=== PATIENT | female | born 1990 | race Caucasian/White ===

== ENCOUNTER 2021-01-27 18:11 | Inpatient (IN) | payer OTHER ==
[2021-01-27] MEDS ORDERED: Nalbuphine 10 MG/1 ML Vial IVPUSH PRN (18:41)
[2021-01-27] MEDS ORDERED: Sodium Chloride 0.9% 10 ML Syringe FLUSH PRN (18:41)
--- NOTE | 2021-01-27 18:44 | PCM.LDHP ---
L&D History of Present Illness - General Date of Service: 01/27/21 Admit Problem/Dx: Patient Status Order with Admit Dx/Problem 01/27/21 18:41 Patient Status [ADT] Routine Admission Diagnosis/Problem Admission Diagnosis/Problem Premature rupture of membranes Source of Information: Patient History Limitations: Reports: No Limitations - History of Present Illness Introduction:: Patient is a 30 y/o at 38 1/7 wks who presents for admission for SROM/PROM. Thinks for most of this week has had some intermittent dampness/leaking. Today in shower around 1130 this increased. Was seen in clinic earlier today and had an amnisure which was positive. 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: Reports: Endometriosis, : 1 Para: 0 LMP (Approximate): - Past Surgical History HEENT Surgical History: Reports: Eye Surgery GI Surgical History: Reports: Appendectomy Female Surgical History: Reports: Other (See Below) (diagnostic laparoscopy) Musculoskeletal Surgical History: Reports: Other (See Below) (ACL repair) Social & Family History - Tobacco Use Tobacco Use Status *Q: Never Tobacco User - Alcohol Use Alcohol Use History: No - Recreational Drug Use Recreational Drug Use: No H&P Review of Systems - Review of Systems: Review Of Systems: See Below General: Reports: No Symptoms Pulmonary: Reports: No Symptoms Cardiovascular: Reports: No Symptoms Gastrointestinal: Reports: No Symptoms Genitourinary: Reports: No Symptoms Musculoskeletal: Reports: Back Pain Psychiatric: Reports: No Symptoms Neurological: Reports: No Symptoms L&D Exam - Exam Exam: See Below - OB Specific Contraction Intensity: Irritability Movement: Active Heart Tones: Present Heart Tones per Min: 125 Heart Rate (FHR) Variability: Moderate (6-25 bmp) Presentation: Vertex - Plascencia Score Plascencia Score Effacement: >80% Plascencia Score Dilation: 3-4 cm - Exam General: Alert, Oriented, Cooperative Lungs: Clear to Auscultation, Normal Respiratory Effort Cardiovascular: Regular Rate, Regular Rhythm GI/Abdominal Exam: Soft, Non-Tender Genitourinary: Normal external exam - Patient Data Result Diagrams: 01/27/21 18:53 - Problem List (1) 38 weeks gestation of SNOMED Code(s): 47487400 ICD Code: Z3A.38 - 38 WEEKS GESTATION OF Status: Acute Current Visit: Yes (2) Prolonged rupture of membranes SNOMED Code(s): 61507693 ICD Code: O42.90 - CASTILLO ROM, 7TH0 BETW RUPT & ONST LABR, UNSP WEEKS OF GEST Status: Acute Current Visit: Yes Problem List Initiated/Reviewed/Updated: Yes Orders Last 24hrs: Active Orders 24 hr Category Date Time Status Patient Status [ADT] Routine ADT 01/27/21 18:41 Ordered Activity as Tolerated [RC] PFP Care 01/27/21 18:41 Ordered Communication Order [RC] ASDIRECTED Care 01/27/21 18:41 Ordered Heart Tones [RC] ASDIRECTED Care 01/27/21 18:42 Ordered Non Stress Test [RC] PER UNIT ROUTINE Care 01/27/21 18:41 Ordered Notify Provider [RC] PFP Care 01/27/21 18:41 Ordered Notify Provider [RC] PRN Care 01/27/21 18:41 Ordered Peripheral IV Care [RC] . DIRECTED Care 01/27/21 18:42 Ordered Vital Signs [RC] PER UNIT ROUTINE Care 01/27/21 18:41 Ordered Regular Diet [DIET] Diet 01/27/21 Dinner Ordered CBC W/O DIFF,HEMOGRAM [HEME] Stat Lab 01/27/21 18:41 Ordered CORONAVIRUS COVID-19 KATHERYN [MOLEC] Stat Lab 01/27/21 18:43 Ordered HEP C VIRUS AB [REF] Stat Lab 01/27/21 18:41 Ordered RAPID PLASMA REAGIN,RPR [CHEM] Routine Lab 01/27/21 18:41 Ordered TYPE AND SCREEN [BBK] Stat Lab 01/27/21 18:41 Ordered Lactated Ringers [Ringers, Lactated] 1,000 ml Med 01/27/21 18:45 Ordered IV ASDIRECTED Nalbuphine [Nubain] Med 01/27/21 18:41 Ordered 10 mg IVPUSH Q2H PRN Ondansetron [Zofran] Med 01/27/21 18:41 Ordered 4 mg IVPUSH Q4H PRN Oxytocin/Lactated Ringers [Pitocin in LR 10 Units/1,000 Med 01/27/21 18:45 Ordered ML] 10 unit in 1,000 ml IV .CONTINUOUS Sodium Chloride 0.9% [Saline Flush] Med 01/27/21 18:41 Ordered 10 ml FLUSH ASDIRECTED PRN Electronic Heart Tones Ext w TOCO [WOMSER] Oth 01/27/21 18:41 Ordered Routine Electronic Heart Tones Internal [WOMSER] Per Unit Ot 01/27/21 18:41 Ordered Routine Peripheral IV Insertion Adult [OM.PC] Routine Ot 01/27/21 18:41 Ordered Resuscitation Status Routine Resus Stat 01/27/21 18:41 Ordered Assessment/Plan Comment:: * Unknown duration of ROM. Will start pitocin for augmentation * GBS negative * Lab work done * Pain management per patient preference * Anticipate
[2021-01-27] MEDS ORDERED: Oxytocin/Lactated Ringers 10 UNIT/1,000 ML BAG IV SCH ×2 (18:45→20:15)
--- NOTE | 2021-01-27 18:48 | PCM.PREANE ---
Preanesthetic Assessment - Procedure Proposed Procedure: BASHIR - Anesthesia/Transfusion/Family Hx Anesthesia History: Prior Anesthesia Without Reaction Family History of Anesthesia Reaction: No Transfusion History: No Prior Transfusion(s) Intubation History: Unknown - Review of Systems General: No Symptoms Pulmonary: No Symptoms Cardiovascular: No Symptoms, Edema (last 3 weeks) Gastrointestinal: No Symptoms (GERD), Nausea Other: Reports: None - Physical Assessment NPO Status Date: 01/27/21 NPO Status Time: 18:45 Vital Signs: HR:107 Sat: 99% Temp: 97.9 B/P: 137/82 Resp: 20 Height: 1.63 m Weight: 103.419 kg ASA Class: 3 Mental Status: Alert & Oriented x3 Airway Class: Mallampati = 2 Dentition: Reports: Normal Dentition, Caries Thyro-Mental Finger Breadths: 3 Mouth Opening Finger Breadths: 3 ROM/Head Extension: Full Lungs: Clear to Auscultation, Normal Respiratory Effort Cardiovascular: Regular Rate, Regular Rhythm, No Murmurs - Lab Values: All labs reviewed and noted and within acceptable ranges to proceed with epidural. - Allergies Allergies/Adverse Reactions: Allergies Allergy/AdvReac Type Severity Reaction Status Date / Time No Known Allergies Allergy Verified 01/27/14 08:59 - Anesthesia Plan Pre-Op Medication Ordered: None - Acknowledgements Anesthesia Type Planned: Epidural Pt an Appropriate Candidate for the Planned Anesthesia: Yes Alternatives and Risks of Anesthesia Discussed w Pt/Guardian: Yes Pt/Guardian Understands and Agrees with Anesthesia Plan: Yes PreAnesthesia Questionnaire - HOME MEDS Home Medications: Home Meds Ciprofloxacin HCl [Cipro] 500 mg PO BID #10 tablet 01/27/14 [Rx] Hydrocodone/Acetaminophen [[place] 5-325] 1 tab PO Q6HR PRN #7 tablet 01/27/14 [Rx] Ondansetron [Zofran] 4 mg PO Q8H PRN #7 bottle 01/27/14 [Rx]
[2021-01-27] MEDS ORDERED: ePHEDrine 50 MG/ML SDV IVPUSH PRN (19:05)
[2021-01-27] MEDS ORDERED: fentaNYL 100 MCG/2 ML SDV EPIDUR PRN (19:05)
[2021-01-27] MEDS ORDERED: Ondansetron 4 MG/2 ML SDV IVPUSH PRN (19:05)
[2021-01-27] MEDS ORDERED: Bupivacaine/fentaNYL/NS 100 ML Bag EPIDUR SCH (19:15)
[2021-01-27] MEDS: Lactated Ringers 1,000 ML IV SCH (20:26)
[2021-01-27] MEDS: Ondansetron 4 MG/2 ML SDV IVPUSH PRN (23:29)
[2021-01-28] MEDS: Lactated Ringers 1,000 ML IV SCH ×2 (00:14→06:36)
[2021-01-28] MEDS ORDERED: Bupivacaine 0.25% 30 ML SDV ONE (01:00)
[2021-01-28] MEDS: Ondansetron 4 MG/2 ML SDV IVPUSH PRN (03:09)
[2021-01-28] MEDS ORDERED: ceFAZolin 1 GM Vial IM ONE (05:59)
--- NOTE | 2021-01-28 06:28 | PCM.DEL ---
L & D Note - General Info Date of Service: 01/28/21 - Delivery Note Labor: Augmented by Oxytocin Delivery Outcome: Livebirth Delivery Method: Spontaneous Vaginal Delivery-Single Delivery Mode: Spontaneous Presentation: Right Occiput Anterior (MAK) Nuchal Cord: Present (tight, not reduced) Anesthesia Type: Epidural Amniotic Fluid Description: Clear Episiotomy Type: None Laceration: 2nd Degree, Sulcus Suture type: Vicryl Suture size: 2-0 Placenta: Intact, Manual Removal Cord: 3 Vessels Estimated Blood Loss: 400 Resuscitation Needed: Yes : Bulb Syringe, Stimulated, Warmed, Capron Used, Warmer Used Delivery Comments (Free Text/Narrative):: The patient was pushing in the dorsal lithotomy position. Patient pushed for about 4 hours and became tired. Sterile vaginal exam complete/complete/+4 station. head in MAK presentation. Maternal pushing effort was good and the pelvis was felt to be adequate for an instrument assisted delivery. Given maternal exhaustion the decision was made to proceed with vacuum assisted vaginal delivery. The mushroom cup was placed without difficulty with care to avoid the vaginal side alarcon at 0531. Subsequent vacuum assisted vaginal delivery with pushing over two contractions at 0533. Total pressure applied 550 mm Hg. Total pop offs 0. Suction was removed following delivery of the head. Nuchal cord present, but tight and so not reduced. The remainder of the infant delivered without difficulty. placed on maternal abdomen. Cord clamped and cut. Cord blood obtained. After 30 minutes placenta not yet delivered. Manual extraction done successfully. Given ancef for antibiotic prophylaxis. Inspection of the perineum following delivery with bilateral sulcus tear repaired with 2 separate 2-0 Vicryl sutures - General Info Date of Service: 01/28/21 - Patient Data Vitals - Most Recent: Last Vital Signs Temp 36.7 C 01/27/21 20:03 Pulse 116 H 01/27/21 20:03 Resp 16 01/27/21 20:03 BP 137/82 01/27/21 20:03 Pulse Ox Weight - Most Recent: 103.646 kg - Problem List & Annotations (1) 38 weeks gestation of SNOMED Code(s): 76080675 Code(s): Z3A.38 - 38 WEEKS GESTATION OF Status: Acute Current Visit: Yes (2) Prolonged rupture of membranes SNOMED Code(s): 91417263 Code(s): O42.90 - CASTILLO ROM, 7TH0 BETW RUPT & ONST LABR, UNSP WEEKS OF GEST Status: Acute Current Visit: Yes (3) Maternal exhaustion complicating labor and delivery SNOMED Code(s): 828965789 Code(s): O75.81 - MATERNAL EXHAUSTION COMPLICATING LABOR AND DELIVERY Status: Acute Current Visit: Yes (4) Vacuum-assisted vaginal delivery SNOMED Code(s): 89780749993307264 Code(s): Z37.9 - OUTCOME OF DELIVERY, UNSPECIFIED Status: Acute Current Visit: Yes (5) Retained placenta SNOMED Code(s): 628207916 Code(s): O73.0 - RETAINED PLACENTA WITHOUT HEMORRHAGE Status: Acute Current Visit: Yes Qualifiers: Retained placenta detail: complete placenta Qualified Code(s): O73.0 - Retained placenta without hemorrhage - Problem List Review Problem List Initiated/Reviewed/Updated: Yes - My Orders Last 24 Hours: My Active Orders 01/27/21 Dinner Regular Diet [DIET] 01/27/21 18:41 Patient Status [ADT] Routine Activity as Tolerated [RC] PFP Communication Order [RC] ASDIRECTED Notify Provider [RC] PFP Notify Provider [RC] PRN Nalbuphine [Nubain] 10 mg IVPUSH Q2H PRN Ondansetron [Zofran] 4 mg IVPUSH Q4H PRN Sodium Chloride 0.9% [Saline Flush] 10 ml FLUSH ASDIRECTED PRN Electronic Heart Tones Ext w TOCO [WOMSER] Routine Electronic Heart Tones Internal [WOMSER] Per Unit Routine Peripheral IV Insertion Adult [OM.PC] Routine Resuscitation Status Routine 01/27/21 18:42 Heart Tones [RC] ASDIRECTED Peripheral IV Care [RC] . DIRECTED 01/27/21 18:45 Lactated Ringers [Ringers, Lactated] 1,000 ml IV ASDIRECTED Oxytocin/Lactated Ringers [Pitocin in LR 10 Units/1,000 ML] 10 unit in 1,000 ml IV .CONTINUOUS 01/27/21 18:53 HEP C VIRUS AB [REF] Stat 01/27/21 20:15 Oxytocin/Lactated Ringers [Pitocin in LR 10 Units/1,000 ML] 10 unit in 1,000 ml IV TITRATE 01/28/21 06:15 ceFAZolin [Ancef 2 GM/50 ML] 50 ml IV ONETIME - Assessment Assessment:: PPD#0 - Plan Plan:: * Routine cares * Breast feeding * Discharge home in 2 days
--- NOTE | 2021-01-28 07:24 | PCM48HPAN ---
Post Anesthesia Note - EVALUATION WITHIN 48HRS OF ANESTHETIC Vital Signs in Normal Range: Yes Patient Participated in Evaluation: Yes Respiratory Function Stable: Yes Airway Patent: Yes Cardiovascular Function Stable: Yes Hydration Status Stable: Yes Pain Control Satisfactory: Yes Nausea and Vomiting Control Satisfactory: Yes Mental Status Recovered: Yes Vital Signs: Last Vital Signs Temp 98.1 F 01/27/21 20:03 Pulse 116 H 01/27/21 20:03 Resp 16 01/27/21 20:03 BP 137/82 01/27/21 20:03 Pulse Ox
[2021-01-28] MEDS ORDERED: Benzocaine/Menthol 20%-0.5% Spray 56 GM Canister TOP PRN (07:29)
[2021-01-28] MEDS ORDERED: Witch Hazel Medicated Pads 40/Jar TOP PRN (07:29)
[2021-01-28] MEDS: Ibuprofen 600 MG Tab PO PRN ×2 (13:37→21:24)
[2021-01-28] MEDS ORDERED: Famotidine 20 MG Tab PO ONE (15:29)
[2021-01-29] MEDS: Ibuprofen 600 MG Tab PO PRN ×3 (03:48→15:32)
[2021-01-29] MEDS: Docusate Sodium 100 MG Cap PO PRN ×2 (09:16→19:38)
--- NOTE | 2021-01-29 11:25 | PCM.SN.2 ---
- Free Text/Narrative Note: Post Progress Note PPD #1 Subjective: Doing well overall. Ambulating without difficulty. Lochia minimal. Patient with urinary retention in the evening of PPD #0. She had straight cath x1 with 1000 mL of urine drained. She then had overflow urinary incontinence and was unable to urinate and had 700 mL of urine drained later in the evening and Wang catheter was placed at that time. She has had good urine output since then. Tolerating regular diet without nausea or vomiting. Pain controlled with oral medications. Breast-feeding with minimal difficulty. Objective: Vitals: Vital Signs - 24 hr 01/28/21 01/28/21 01/29/21 14:35 21:25 03:36 Temperature 36.8 C 36.8 C 36.8 C Pulse, 112 H 101 H 81 Peripheral Respiratory 16 14 14 Rate Blood Pressure 121/71 125/76 124/65 O2 Sat by Pulse 96 97 95 Oximetry Physical Exam General: Alert and oriented, no acute distress Lungs: Clear to auscultation bilaterally Heart: Regular rate and rhythm Abdomen: Soft, minimal appropriate tenderness, non-distended, fundus midline, nontender, and at the umbilicus Pelvis: Wang catheter in place, no significant bleeding noted on peripad Extremities: Trace edema in bilateral lower extremities to mid shins, no calf tenderness bilaterally ASSESSMENT: 30-year-old female -0-0-1 s/p vacuum-assisted vaginal delivery PPD #1, complicated by urinary retention after delivery and Wang catheter placed for continuous drainage of urine, retained placenta with manual extraction and meconium stained fluid PLAN: Doing well Discontinue catheter this morning and monitor for urination. If patient is unable to urinate after approximately 4 hours after removal then we will replace the Wang catheter and leave it in place for 3 to 5 days until she is able to be seen in the clinic by her regular [employer], Dr. Helms. Breast-feeding with minimal difficulty. Assist as needed Lochia minimal. Continue to monitor for appropriate lochia. Continue routine care Anticipate discharge home tomorrow Kelvin Mccormick MD 11:25 AM 01/29/2021
[2021-01-29] MEDS: Acetaminophen 325 MG Tab PO PRN (19:38)
[2021-01-30] MEDS: Ibuprofen 600 MG Tab PO PRN ×2 (00:02→09:14)
[2021-01-30] MEDS: Docusate Sodium 100 MG Cap PO PRN ×2 (09:16→10:43)
[2021-01-30] MEDS: Acetaminophen 325 MG Tab PO PRN (10:43)
--- NOTE | 2021-01-30 10:53 | PCM.SN.2 ---
- Free Text/Narrative Note: Post Progress Note PPD #2 Subjective: Doing well overall. Ambulating without difficulty. Lochia minimal. Patient with Wang catheter that was removed in the morning of PPD #1 and has been able to urinate without difficulty since then. She reports that she did have a bowel movement this morning and noted some increased amount of vaginal bleeding after bowel movement. She denies any pain or pressure in the vagina or rectum. Tolerating regular diet without nausea or vomiting. Pain controlled with oral medications. Breast-feeding with minimal difficulty. Objective: Vitals: Vital Signs - 24 hr 01/29/21 01/29/21 15:30 20:46 Temperature 36.3 C 36.8 C Pulse, 96 109 H Peripheral Respiratory 16 16 Rate Blood Pressure 94/51 L 126/59 L O2 Sat by Pulse 97 95 Oximetry Physical Exam General: Alert and oriented, no acute distress Lungs: Clear to auscultation bilaterally Heart: Regular rate and rhythm Abdomen: Soft, minimal appropriate tenderness, non-distended, fundus midline, nontender, and 2 fingerbreadths below the umbilicus Pelvis: Wang catheter in place, no significant bleeding noted on peripad Extremities: Trace edema in bilateral lower extremities to mid shins, no calf tenderness bilaterally ASSESSMENT: 30-year-old female -0-0-1 s/p vacuum-assisted vaginal delivery PPD #2, complicated by urinary retention after delivery and Wang catheter placed for continuous drainage of urine, retained placenta with manual extraction and meconium stained fluid PLAN: Doing well Patient voiding without difficulty after removal of her Wang catheter on PPD #1 Breast-feeding with minimal difficulty. Assist as needed Lochia minimal. Continue to monitor for appropriate lochia. Continue routine care Discharge home today Kelvin Mccormick MD 10:51 AM 01/30/2021
--- NOTE | 2021-01-30 11:00 | PCM.DCSUM1 ---
Discharge Summary - Hospital Course Free Text/Narrative:: - General Info Date of Service: 01/28/21 - Delivery Note Labor: Augmented by Oxytocin Delivery Outcome: Livebirth Delivery Method: Spontaneous Vaginal Delivery-Single Delivery Mode: Spontaneous Presentation: Right Occiput Anterior (MAK) Nuchal Cord: Present (tight, not reduced) Anesthesia Type: Epidural Amniotic Fluid Description: Clear Episiotomy Type: None Laceration: 2nd Degree, Sulcus Suture type: Vicryl Suture size: 2-0 Placenta: Intact, Manual Removal Cord: 3 Vessels Estimated Blood Loss: 400 Resuscitation Needed: Yes : Bulb Syringe, Stimulated, Warmed, [place] Used, Warmer Used Delivery Comments (Free Text/Narrative):: The patient was pushing in the dorsal lithotomy position. Patient pushed for about 4 hours and became tired. Sterile vaginal exam complete/complete/+4 station. head in MAK presentation. Maternal pushing effort was good and the pelvis was felt to be adequate for an instrument assisted delivery. Given maternal exhaustion the decision was made to proceed with vacuum assisted vaginal delivery. The mushroom cup was placed without difficulty with care to avoid the vaginal side alarcon at 0531. Subsequent vacuum assisted vaginal delivery with pushing over two contractions at 0533. Total pressure applied 550 mm Hg. Total pop offs 0. Suction was removed following delivery of the head. Nuchal cord present, but tight and so not reduced. The remainder of the delivered without difficulty. Infant placed on maternal abdomen. Cord clamped and cut. Cord blood obtained. After 30 minutes placenta not yet delivered. Manual extraction done successfully. Given ancef for antibiotic prophylaxis. Inspection of the perineum following delivery with bilateral s ulcus tear repaired with 2 separate 2-0 Vicryl sutures Diagnosis: Stroke: No - Discharge Data Discharge Date: 01/30/21 Discharge Disposition: Home, Self-Care 01 Condition: Good - Referral to Home Health Primary Care Physician: Susana Helms MD - Patient Summary/Data Complications: None Consults: None Hospital Course: Michelle Flores was admitted for spontaneous rupture membranes that may have been present for several days. On admission her cervix was dilated to 3-4 cm. She was GBS negative. She was given pitocin for augmentation. She was given an epidural for anesthesia. She progressed to complete and began pushing. On 01/28/2021 she had a vacuum-assisted vaginal delivery of a live female at 05:33. Apgars of 5, 7 and 8. Weight of 2890 g (6 pounds 5.9 ounces). Her course was uneventful. Her pain was well controlled and she had minimal lochia. During PPD #0 she was not able to urinate and had straight catheterization x1 with return of 1000 mL of urine. She was then continuing to have overflow urinary and continence with inability to urinate and had an additional 700 mL of urine drained in the evening of PPD #0 a Wang catheter was placed overnight. She was ambulating, tolerating a regular diet and voiding normally. She was breast-feeding with minimal difficulty. She was afebrile and her hematocrit was 37.0 on admission.in the morning of PPD #1 her Wang catheter was removed and she was able to urinate without difficulty during that day and into PPD #2. She desired to be discharged home on the morning of PPD #2. Her blood type is O+. - Patient Instructions Diet: Regular Diet as Tolerated Activity: Apply Ice, As Tolerated Activity, Other: Nothing in the vagina for 6 weeks Driving: May Drive Today Showering/Bathing: May Shower Notify Provider of: Fever, Increased Pain, Swelling and Redness, Drainage, Nausea and/or Vomiting - Discharge Plan *PRESCRIPTION DRUG MONITORING PROGRAM REVIEWED*: Not Applicable *COPY OF PRESCRIPTION DRUG MONITORING REPORT IN PATIENT LEELEE: Not Applicable Home Medications: Home Meds Lactobacillus 3/Fos/Pantethine [Probiotic & Acidophilus] 1 cap PO DAILY 01/27/21 [History] Pnv No.95/Ferrous Fum/Folic AC [ Tablet] 1 tab PO DAILY 01/27/21 [History] diphenhydrAMINE HCL [Unisom] 50 mg PO BEDTIME 01/27/21 [History] Acetaminophen [Tylenol] 650 mg PO Q4H PRN tablet 01/30/21 [Rx] Benzocaine/Menthol [Dermoplast Pain Relief Kipling] 1 spray TOP ASDIRECTED PRN canister 01/30/21 [Rx] Docusate Sodium [Colace] 100 mg PO BID PRN cap 01/30/21 [Rx] Ibuprofen [Motrin] 600 mg PO Q6H PRN tablet 01/30/21 [Rx] witch Sue [Tucks] 1 pad TOP ASDIRECTED PRN pad 01/30/21 [Rx] Patient Handouts: Care After Vaginal Delivery, Care of a Perineal Tear, Vacuum-Assisted Vaginal Delivery Referrals: Susana Helms MD [Primary Care Provider] - (Follow-up for routine visit in 3 to 6 weeks or earlier as needed.) - Discharge Summary/Plan Comment DC Time >30 min.: No - Patient Data Vitals - Most Recent: Last Vital Signs Temp 36.8 C 01/29/21 20:46 Pulse 109 H 01/29/21 20:46 Resp 16 01/29/21 20:46 BP 126/59 L 01/29/21 20:46 Pulse Ox 95 01/29/21 20:46 Weight - Most Recent: 103.646 kg I&O - Last 24 hours: Intake & Output 01/29/21 01/30/21 01/30/21 22:59 06:59 14:59 Intake Total 110 Output Total 2100 Balance -1989 Lab Results - Last 24 hrs: Laboratory Results - last 24 hr 01/27/21 Range/Units 18:53 Hepatitis C Antibody <0.1 (0.0-0.9) s/co ratio Med Orders - Current: Current Medications Acetaminophen (Acetaminophen 325 Mg Tab) 650 mg PO Q4H PRN PRN Reason: mild pain or fever Last Admin: 01/30/21 10:43 Dose: 650 mg Documented by: Benzocaine/Menthol (Benzocaine/Menthol 20%-0.5% Kipling 56 Gm Canister) 0 gm TOP ASDIRECTED PRN PRN Reason: Perineal Comfort Measure Last Admin: 01/30/21 10:43 Dose: 1 can Documented by: Docusate Sodium (Docusate Sodium 100 Mg Cap) 100 mg PO BID PRN PRN Reason: Constipation Last Admin: 01/30/21 10:43 Dose: 100 mg Documented by: Ibuprofen (Ibuprofen 600 Mg Tab) 600 mg PO Q6H PRN PRN Reason: Mild pain or fever Last Admin: 01/30/21 09:14 Dose: 600 mg Documented by: Promise Perezel (Witch Sue Medicated Pads 40/Jar) 1 pad TOP ASDIRECTED PRN PRN Reason: Perineal Comfort Measure Last Admin: 01/30/21 10:43 Dose: 1 jar Documented by: Discontinued Medications Bupivacaine HCl (Bupivacaine 0.25% 30 Ml Sdv) 30 ml .ROUTE .STK-MED ONE Stop: 01/28/21 01:01 Ephedrine Sulfate (Ephedrine 50 Mg/Ml Sdv) 5 mg IVPUSH ASDIRECTED PRN PRN Reason: Hypotension Last Admin: 01/28/21 00:32 Dose: 5 mg Documented by: Famotidine (Famotidine 20 Mg Tab) 20 mg PO ONETIME ONE Stop: 01/28/21 15:30 Last Admin: 01/28/21 16:17 Dose: 20 mg Documented by: Fentanyl (Fentanyl 100 Mcg/2 Ml Sdv) 100 mcg EPIDUR Q3H PRN PRN Reason: Pain Last Admin: 01/27/21 23:34 Dose: 100 mcg Documented by: Fentanyl/Bupivacaine HCl (Bupivacaine/Fentanyl/Ns 100 Ml Bag) 100 ml EPIDUR ASDIRECTED NIEVES Last Admin: 01/27/21 23:35 Dose: 100 ml Documented by: Oxytocin/Lactated Ringer's (Pitocin In Lr 10 Units/1,000 Ml) 10 unit in 1,000 mls @ 500 mls/hr IV .CONTINUOUS NIEVES Last Admin: 01/28/21 06:37 Dose: 500 mls/hr Documented by: Lactated Ringer's (Ringers, Lactated) 1,000 mls @ 100 mls/hr IV ASDIRECTED NIEVES Last Admin: 01/28/21 06:36 Dose: 100 mls/hr Documented by: Oxytocin/Lactated Ringer's (Pitocin In Lr 10 Units/1,000 Ml) 10 unit in 1,000 mls @ 12 mls/hr IV TITRATE NIEVES; Protocol Last Titration: 01/28/21 05:01 Dose: 6 munits/min, 36 mls/hr Documented by: Cefazolin Sodium/Dextrose (Ancef 2 Gm/50 Ml) Confirm Administered Dose 50 mls @ as directed .ROUTE .STK-MED ONE Stop: 01/28/21 06:12 Last Admin: 01/28/21 06:18 Dose: Not Given Documented by: Cefazolin Sodium/Dextrose (Ancef 2 Gm/50 Ml) 50 mls @ 100 mls/hr IV ONETIME ONE Stop: 01/28/21 06:44 Last Admin: 01/28/21 06:18 Dose: 100 mls/hr Documented by: Miscellaneous Medication (Phenylephrine Hcl In 0.9% Nacl 1 Mg/10 Ml Syringe) 0.1 mg IVPUSH Q10M PRN PRN Reason: Hypotension Nalbuphine HCl (Nalbuphine 10 Mg/1 Ml Vial) 10 mg IVPUSH Q2H PRN PRN Reason: Pain Ondansetron HCl (Ondansetron 4 Mg/2 Ml Sdv) 4 mg IVPUSH Q4H PRN PRN Reason: Nausea/Vomiting Last Admin: 01/28/21 03:09 Dose: 4 mg Documented by: Ondansetron HCl (Ondansetron 4 Mg/2 Ml Sdv) 4 mg IVPUSH ONETIME PRN PRN Reason: Nausea/Vomiting Sodium Chloride (Sodium Chloride 0.9% 10 Ml Syringe) 10 ml FLUSH ASDIRECTED PRN PRN Reason: Keep Vein Open
== END 2021-01-30 13:15 | disposition home or self-care (01) | DRG 807 ==
LOC: JD.OBCHECK 18:11 → JD.OB 18:16 → JD.OBCHECK 18:41 → JD.OB 19:14 → OBSVTOIN 01-28 05:33 → JD.OB 01-28 05:34
PROVIDERS: ADMIT Obstetrics & Gynecology; ATTEND Obstetrics & Gynecology
PROC: 10D07Z6 Extraction of Products of Conception, Vacuum, Via Natural or Artificial Opening (ICD-10-PCS; principal; 2021-01-28)
PROC: 0KQM0ZZ Repair Perineum Muscle, Open Approach (ICD-10-PCS; 2021-01-28)
PROC: 10907ZC Drainage of Amniotic Fluid, Therapeutic from Products of Conception, Via Natural or Artificial Opening (ICD-10-PCS; 2021-01-28)
PROC: 3E0R3BZ Introduction of Anesthetic Agent into Spinal Canal, Percutaneous Approach (ICD-10-PCS; 2021-01-28)
DX: O69.1XX0 Labor and delivery complicated by cord around neck, with compression, not applicable or unspecified (principal); Z37.0 Single live birth; Z3A.38 38 weeks gestation of pregnancy; Z90.49 Acquired absence of other specified parts of digestive tract; O70.1 Second degree perineal laceration during delivery; O77.0 Labor and delivery complicated by meconium in amniotic fluid; Z20.822 Contact with and (suspected) exposure to COVID-19
CPT/HCPCS: 01967; 36415; 51701; 51702; 59025; 59409; 85027; 86592; 86803; 86850; 86900; 86901; A9270-GY; J0690; J2405; J2590; J3010; J3490; J7120; U0002

== ENCOUNTER 2023-04-12 11:40 | Inpatient (IN) | payer OTHER ==
[~2023-04-12 11:40] MED LIST: Bupivacaine 0.25% 10 ML SDV ONE
[2023-04-12] MEDS ORDERED: Calcium Carbonate 500 MG Tab.Chew PO PRN (11:48)
[2023-04-12] MEDS ORDERED: Nalbuphine 10 MG/0.5 ML Syringe IVPUSH PRN (11:48)
[2023-04-12] MEDS ORDERED: Lidocaine 1% 50 ML MDV INJECT PRN (11:48)
[2023-04-12] MEDS ORDERED: Ondansetron 4 MG/2 ML SDV IVPUSH PRN (11:48)
[2023-04-12] MEDS ORDERED: Acetaminophen 325 MG Tab PO PRN (11:48)
[2023-04-12] MEDS ORDERED: Oxytocin/Lactated Ringers 10 UNIT/1,000 ML BAG IV SCH ×2 (12:00)
[2023-04-12] MEDS ORDERED: ePHEDrine 50 MG/ML SDV IVPUSH PRN (12:29)
[2023-04-12] MEDS ORDERED: fentaNYL 100 MCG/2 ML SDV EPIDUR PRN (12:29)
[2023-04-12] MEDS ORDERED: Bupivacaine/fentaNYL/NS 100 ML Bag EPIDUR PRN (12:29)
[2023-04-12] MEDS ORDERED: diphenhydrAMINE 50 MG/ML SDV IVPUSH PRN (12:29)
[2023-04-12 12:34] LABS: BASOPHILS ABSOLUTE AUTO 0.02 K/mm3 (0.01-0.08); BASOPHILS PERCENT AUTO 0.2 % (0.1-1.2); EOSINOPHILS ABSOLUTE AUTO 0.02 K/mm3 (0.04-0.36); EOSINOPHILS PERCENT AUTO 0.2 (0.7-5.8); HEMATOCRIT 39.6 % (34.1-44.9); HEMOGLOBIN 13.3 gm/dl (11.2-15.7); IMMATURE GRAN ABSOLUTE AUTO 0.03 K/mm3 (0.00-0.10); IMMATURE GRAN PERCENT AUTO 0.2 % (<=1.0); LYMPHOCYTES ABSOLUTE AUTO 2.33 K/mm3 (1.18-3.74); MEAN CORPUSCULAR HEMOGLOBIN 29.1 pg (25.6-32.2); MEAN CORPUSCULAR HGB CONC 33.6 g/dl (32.2-35.5); MEAN CORPUSCULAR VOLUME 86.7 fl (79.4-94.8); MEAN PLATELET VOLUME 8.8 fl (9.4-12.3); MONOCYTES ABSOLUTE AUTO 0.58 K/mm3 (0.24-0.36); MONOCYTES PERCENT AUTO 4.7 % (4.7-12.5); NEUTROPHILS ABSOLUTE AUTO 9.29 K/mm3 (1.56-6.13); NEUTROPHILS PERCENT AUTO 75.7 % (34.0-71.1); PLATELET COUNT,PLT 312 K/mm3 (182-369); RED BLOOD CELL COUNT 4.57 M/mm3 (3.98-5.22); WHITE BLOOD CELL COUNT,WBC 12.27 K/mm3 (3.98-10.04)
[2023-04-12] MEDS: Lactated Ringers 1,000 ML IV SCH ×2 (13:19→18:18)
[2023-04-12] MEDS ORDERED: Terbutaline 1 MG/ML SDV ONE (17:12)
[2023-04-12] MEDS ORDERED: ceFAZolin 2 GM in Sodium Chloride 0.9% 50 ML IV ONE ×2 (17:29→17:51)
[2023-04-12] MEDS ORDERED: Benzocaine/Menthol 20%-0.5% Spray 78 GM Cannister TOP PRN (17:50)
[2023-04-12] MEDS ORDERED: Docusate Sodium 100 MG Cap PO PRN (17:50)
[2023-04-12] MEDS ORDERED: Witch Hazel Medicated Pads 40/Jar TOP PRN (17:50)
[2023-04-12] MEDS ORDERED: Terbutaline 1 MG/ML SDV SUBCUT ONE (18:12)
[2023-04-12] MEDS ORDERED: Ondansetron 4 MG/2 ML SDV IVPUSH ONE (18:38)
[2023-04-12] MEDS: Ibuprofen 600 MG Tab PO PRN (18:56)
[2023-04-12] MEDS ORDERED: Sodium Chloride 0.9% 10 ML Syringe FLUSH SCH (21:00)
[2023-04-13] MEDS: Ibuprofen 600 MG Tab PO PRN ×4 (01:51→20:48)
[2023-04-13] MEDS: Acetaminophen 325 MG Tab PO PRN ×3 (11:52→20:44)
[2023-04-14 08:03] VITALS: BP 124/69; PULSE 74
== END 2023-04-14 09:57 | disposition home or self-care (01) | DRG 807 ==
LOC: JD.OBCHECK 11:40 → JD.OB 11:47 → JD.OBCHECK 11:48 → JD.OB 11:49 → OBSVTOIN 16:40 → JD.OB 16:41
PROVIDERS: ADMIT Obstetrics & Gynecology; ATTEND Obstetrics & Gynecology
PROC: 10E0XZZ Delivery of Products of Conception, External Approach (ICD-10-PCS; principal; 2023-04-12)
PROC: 10D17Z9 Manual Extraction of Products of Conception, Retained, Via Natural or Artificial Opening (ICD-10-PCS; 2023-04-12)
PROC: 3E0R3BZ Introduction of Anesthetic Agent into Spinal Canal, Percutaneous Approach (ICD-10-PCS; 2023-04-12)
PROC: 00HU33Z Insertion of Infusion Device into Spinal Canal, Percutaneous Approach (ICD-10-PCS; 2023-04-12)
PROC: 3E033VJ Introduction of Other Hormone into Peripheral Vein, Percutaneous Approach (ICD-10-PCS; 2023-04-12)
DX: O42.013 Preterm premature rupture of membranes, onset of labor within 24 hours of rupture, third trimester (principal); Z37.0 Single live birth; O99.344 Other mental disorders complicating childbirth; F41.9 Anxiety disorder, unspecified; O35.02X0 Maternal care for (suspected) central nervous system malformation or damage in fetus, anencephaly, not applicable or unspecified; O77.0 Labor and delivery complicated by meconium in amniotic fluid; O73.0 Retained placenta without hemorrhage; Z3A.35 35 weeks gestation of pregnancy; Z88.8 Allergy status to other drugs, medicaments and biological substances; Z79.899 Other long term (current) drug therapy; Z90.49 Acquired absence of other specified parts of digestive tract; Z98.890 Other specified postprocedural states
CPT/HCPCS: 36415; 51702; 59409; 85025; 86592; 86850; 86900; 86901; A9270-GY; J0690; J2405; J3010; J3105; J3490; J7120